=== PATIENT | male | born 1960 | race Caucasian/White ===

== ENCOUNTER 2020-11-05 06:01 | Day surgery (SDC) | payer OTHER ==
[2020-11-04 13:14] VITALS: BMI 32.5
[2020-11-05] MEDS ORDERED: Fluorouracil 100 MG, Enoxaparin Sodium 25 MG, EPINEPHrine 0.3 MG in Ophthalmic Irrigati... IRR SCH (06:30)
[2020-11-05] MEDS ORDERED: Phenylephrine 2.5% Ophth Soln 5 ML BOT ONE (06:31)
[2020-11-05] MEDS ORDERED: Cyclopentolate 1% Ophth Drops 15 ML BOT ONE (06:32)
[2020-11-05] MEDS ORDERED: Midazolam HCl 2 mg/2 ml Vial ONE (06:44)
[2020-11-05] MEDS ORDERED: Fentanyl 100 MCG/2 ML VIAL ONE ×2 (06:44)
[2020-11-05] MEDS ORDERED: PROPOFOL 200 MG/20 ML VIAL ONE (07:12)
[2020-11-05] MEDS ORDERED: Triamcinolone 40 MG/ML VIAL ONE (07:12)
[2020-11-05] MEDS ORDERED: Maxitrol 0.1% Opth Oint 3.5 GM TUBE ONE (07:12)
[2020-11-05] MEDS ORDERED: Bupivacaine PF 0.75% SDV 10 ML ONE (07:12)
[2020-11-05] MEDS ORDERED: CEFAZOLIN 1 GM VIAL ONE (07:12)
[2020-11-05] MEDS ORDERED: Lidocaine 4% PF 5 ML AMP ONE (07:12)
[2020-11-05] MEDS ORDERED: Lidocaine 1% PF 5 ML VIAL ONE (07:12)
[2020-11-05] MEDS ORDERED: Enoxaparin Sodium 30 MG/0.3 ML SYRINGE ONE (07:12)
== END 2020-11-05 08:50 | disposition home or self-care (01) ==
LOC: SDC 06:01
PROVIDERS: ATTEND Ophthalmology Retina Specialist
PROC: 08T43ZZ Resection of Right Vitreous, Percutaneous Approach (ICD-10-PCS; principal; 2020-11-05)
DX: H33.021 Retinal detachment with multiple breaks, right eye (principal); Z91.013 Allergy to seafood; Z91.018 Allergy to other foods
CPT/HCPCS: 67025; J0171; J0690; J1650; J2250; J2704; J3010; J3301; J3490; J9190